=== PATIENT | female | born 1950 | race Caucasian/White ===

== ENCOUNTER 2018-05-20 20:16 | Emergency (ER) | payer MEDICARE, OTHER ==
[2018-05-20 20:49] VITALS: BP 134/68
--- NOTE | 2018-05-20 21:44 | RADIOLOGY REPORT (SQ) ---
EXAM DESCRIPTION: XR ANKLE 3 OR MORE VIEWS COMPLETED DATE/TME: 05/20/2018 00:00 CLINICAL HISTORY: 68 years, Female, Pain s/p twisting ankle COMPARISON: None. NUMBER OF VIEWS: Three TECHNIQUE: Three views of the right ankle were obtained LIMITATIONS: None. FINDINGS: There is presence of an age-indeterminate fracture at the tip of the medial malleolus of the distal right tibia. Soft tissue swelling is seen along the anterior and lateral aspect of the right ankle joint IMPRESSION: There is presence of an age-indeterminate fracture at the tip of the medial malleolus of the distal right tibia. 2011 [employer]- All Rights Reserved
--- NOTE | 2018-05-20 22:46 | ER Document Report ---
ED General - General Chief Complaint: Ankle Injury Stated Complaint: ANKLE PAIN Time Seen by Provider: 05/20/18 22:25 TRAVEL OUTSIDE OF THE [place] IN LAST 30 DAYS: No - HPI Patient complains to provider of: Right ankle pain Notes: Patient states she had a inversion injury of right ankle with pain of the lateral and medial malleolus. Patient denies any other injury - Related Data Allergies/Adverse Reactions: No Known Allergies Allergy (Unverified 05/20/18 20:23) Past Medical History - Social History Smoking Status: Unknown if Ever Smoked Family History: Reviewed & Not Pertinent Review of Systems - Review of Systems Constitutional: No symptoms reported EENT: No symptoms reported Cardiovascular: No symptoms reported Respiratory: No symptoms reported Gastrointestinal: No symptoms reported Genitourinary: No symptoms reported Female Genitourinary: No symptoms reported Musculoskeletal: Ankle swelling - Right ankle bruising with swelling Skin: No symptoms reported Hematologic/Lymphatic: No symptoms reported Neurological/Psychological: No symptoms reported -: Yes All other systems reviewed and negative Physical Exam - Vital signs Vitals: Temp Pulse Resp BP Pulse Ox 99.2 F 91 16 134/68 H 98 05/20/18 20:47 05/20/18 20:47 05/20/18 20:47 05/20/18 20:47 05/20/18 20:47 Interpretation: Normal - General General appearance: Appears well, Alert - HEENT Head: Normocephalic, Atraumatic Eyes: Normal Pupils: PERRL - Respiratory Respiratory status: No respiratory distress Chest status: Nontender Breath sounds: Normal Chest palpation: Normal - Cardiovascular Rhythm: Regular Heart sounds: Normal auscultation Murmur: No - Abdominal Inspection: Normal Distension: No distension Bowel sounds: Normal Tenderness: Nontender Organomegaly: No organomegaly - Back Back: Normal, Nontender - Extremities General upper extremity: Normal inspection, Nontender, Normal color, Normal ROM , Normal temperature General lower extremity: Nontender, Normal color, Normal ROM, Normal temperature , Normal weight bearing. No: Normal inspection - Bruising surrounding the lateral and medial malleolus tenderness to both, Grupo's sign - Neurological Neuro grossly intact: Yes Cognition: Normal Orientation: AAOx4 [place] Coma Scale Eye Opening: Spontaneous [place] Coma Scale Verbal: Oriented [place] Coma Scale Motor: Obeys Commands [place] Coma Scale Total: 15 Speech: Normal Motor strength normal: LUE, RUE, LLE, RLE Sensory: Normal - Psychological Associated symptoms: Normal affect, Normal mood - Skin Skin Temperature: Warm Skin Moisture: Dry Skin Color: Normal Course - Re-evaluation Re-evalutation: 05/20/18 23:10 X-ray shows a fracture of the medial malleolus or distal tip of the tibia. Patient was placed in a ankle stirrup splint pain medication given along with crutches. Patient's follow-up primary care physician. Patient discharged home. - Vital Signs Vital signs: Temp Pulse Resp BP Pulse Ox 99.2 F 91 16 134/68 H 98 05/20/18 20:47 05/20/18 20:47 05/20/18 20:47 05/20/18 20:47 05/20/18 20:47 Discharge - Discharge Clinical Impression: Ankle sprain Qualifiers: Encounter type: initial encounter Involved ligament of ankle: unspecified ligament Laterality: right Qualified Code(s): S93.401A - Sprain of unspecified ligament of right ankle, initial encounter Fracture of distal end of tibia Qualifiers: Encounter type: initial encounter Fracture type: closed Fracture morphology: unspecified fracture morphology Laterality: right Qualified Code(s): S82.301A - Unspecified fracture of lower end of right tibia, initial encounter for closed fracture Disposition: HOME, SELF-CARE Instructions: Ankle Stirrup Splint ([facility]), Use of Crutches ([facility]), Ice & Elevation ([facility]), Ice Packs ([facility]), Oral Narcotic Medication ([facility]), Sprained Ankle ([facility]), Fractured Tibia ([facility]) Additional Instructions: Take Tylenol Motrin for pain control take Ultram for severe pain. Follow-up with your primary care physician return to ER symptoms worsen. Prescriptions: Tramadol HCl [Ultram 50 mg Tablet] 50 mg PO ASDIR PRN #20 tablet PRN Reason: Forms: Return to Work
== END 2018-05-20 23:05 | disposition home or self-care (01) ==
LOC: ER 20:16
DX: S93.401A Sprain of unspecified ligament of right ankle, initial encounter (principal); S82.301A Unspecified fracture of lower end of right tibia, initial encounter for closed fracture; X58.XXXA Exposure to other specified factors, initial encounter
CPT/HCPCS: 99283; 73610; L1902